=== PATIENT | male | born 1980 | race Hispanic/Latino ===

== ENCOUNTER 2017-01-25 20:49 | Emergency (ER) | payer OTHER ==
[2017-01-25] MEDS ORDERED: ULTRAM50 M1 PO (21:39)
[2017-01-25] MEDS ORDERED: AMOXICILLIN500 MG PO (21:39)
[2017-01-25 22:13] VITALS: BP 158/94
== END 2017-01-25 22:10 | disposition home or self-care (01) | DRG 156 ==
LOC: ED 20:49
PROC: 09C4XZZ Extirpation of Matter from Left External Auditory Canal, External Approach (ICD-10-PCS; principal; 2017-01-25)
DX: H73.892 Other specified disorders of tympanic membrane, left ear (principal); H60.502 Unspecified acute noninfective otitis externa, left ear; T16.2XXA Foreign body in left ear, initial encounter; W22.8XXA Striking against or struck by other objects, initial encounter; Y93.89 Activity, other specified; Y92.79 Other farm location as the place of occurrence of the external cause